=== PATIENT | male | born 1970 | race Caucasian/White ===

== ENCOUNTER 2016-09-13 17:22 | Emergency (ER) | payer MEDICAID, OTHER ==
[2016-09-13 17:48] VITALS: BP 114/79; PULSE 84; RESP 18; TEMP 98.2; O2SAT 95
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
--- NOTE | 2016-09-14 08:01 | RAD ---
Left shoulder three views History: Fall. Comparison: None available. Findings: No evidence for acute displaced fracture or dislocation. Mild narrowing of the glenohumeral joint space. Impression: Negative acute. If pain persists, consider MRI.
== END 2016-09-13 18:26 | disposition home or self-care (01) ==
LOC: C.ER 17:22
DX: S43.402A Unspecified sprain of left shoulder joint, initial encounter (principal); V18.4XXA Pedal cycle driver injured in noncollision transport accident in traffic accident, initial encounter; Y93.55 Activity, bike riding; Y92.410 Unspecified street and highway as the place of occurrence of the external cause

== ENCOUNTER 2017-09-18 20:15 | Emergency (ER) | payer SELFPAY ==
[2017-09-18 20:25] VITALS: BP 126/90; PULSE 79; RESP 20; TEMP 98; O2SAT 96
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
--- NOTE | 2017-09-19 07:29 | RAD ---
HISTORY: Cough COMPARISON: No prior. TECHNIQUE: Chest PA and lateral FINDINGS: LUNGS: No active pulmonary disease. PLEURA: No significant pleural effusion identified. No pneumothorax apparent. CARDIOVASCULAR: Normal. OSSEOUS STRUCTURES: No significant abnormalities. VISUALIZED UPPER ABDOMEN: Normal. OTHER FINDINGS: None. IMPRESSION: No acute cardiopulmonary disease appreciated.
--- NOTE | 2017-09-19 07:34 | RAD ---
PROCEDURE: Radiographs of the Left Shoulder HISTORY: injury COMPARISON: No prior. FINDINGS: BONES: No acute fracture or destructive bony lesion identified. JOINTS: Normal. Glenohumeral and acromioclavicular joints preserved. No osteoarthritis. SOFT TISSUES: Normal. OTHER FINDINGS: None. IMPRESSION: Unremarkable radiographs of the left shoulder.
--- NOTE | 2017-09-19 07:35 | RAD ---
PROCEDURE: Radiographs of the Right Shoulder HISTORY: injury COMPARISON: No prior. FINDINGS: BONES: No acute fracture or destructive bony lesion identified. JOINTS: Normal. Glenohumeral and acromioclavicular joints preserved. No osteoarthritis. SOFT TISSUES: Normal. OTHER FINDINGS: None. IMPRESSION: Unremarkable radiographs of the right shoulder.
== END 2017-09-18 21:11 | disposition home or self-care (01) ==
LOC: C.ER 20:15
DX: S16.1XXA Strain of muscle, fascia and tendon at neck level, initial encounter (principal); S43.409A Unspecified sprain of unspecified shoulder joint, initial encounter; V19.9XXA Pedal cyclist (driver) (passenger) injured in unspecified traffic accident, initial encounter; Y93.55 Activity, bike riding

== ENCOUNTER 2017-10-15 19:06 | Emergency (ER) | payer OTHER ==
[2017-10-15 19:22] VITALS: BP 120/74; PULSE 79; RESP 20; TEMP 99
--- NOTE | 2017-10-15 19:36 | C.PDOC ---
History Of Present Illness 46 year old male presents to ED with complaints of aching left shoulder pain for 2 days after lifting heavy boxes at work. He reports pain is worse with movement. He applied ice to area. Denies any radiating pain, chest pain, numbness, or weakness. Time Seen by Provider: 10/15/17 19:30 Chief Complaint (Nursing): Upper Extremity Problem/Injury History Per: Patient History/Exam Limitations: no limitations Onset/Duration Of Symptoms: Days Current Symptoms Are (Timing): Still Present Quality: Aching Exacerbating Factor(s): Movement Recent travel outside of the [place]: No Past Medical History Reviewed: Historical Data, Nursing Documentation, Vital Signs Vital Signs: Last Vital Signs Temp 99 F 10/15/17 19:20 Pulse 79 10/15/17 19:20 Resp 20 10/15/17 19:57 BP 120/74 10/15/17 19:20 Pulse Ox 99 10/15/17 19:57 Family History: States: Unknown Family Hx - Social History Hx Alcohol Use: No Hx Substance Use: No (former user) - Immunization History Hx Tetanus Toxoid Vaccination: Yes Hx Influenza Vaccination: Yes Hx Pneumococcal Vaccination: Yes Review Of Systems Cardiovascular: Negative for: Chest Pain Musculoskeletal: Positive for: Shoulder Pain Neurological: Negative for: Weakness, Numbness Physical Exam - Physical Exam Appears: Non-toxic Skin: Normal Color, Warm, Dry Head: Atraumatic, Normacephalic Eye(s): bilateral: Normal Inspection Extremity: Capillary Refill (<2 seconds), Other (Right shoulder mild tenderness lateral shoulder, pain with abduction over 90 degrees, no crepitus, no swelling , no deformity) Pulses: Left Radial: Normal, Right Radial: Normal Neurological/Psych: Oriented x3, Normal Speech, Normal Motor, Normal Sensation ED Course And Treatment O2 Sat by Pulse Oximetry: 9 (Room air) Pulse Ox Interpretation: Normal Medical Decision Making Medical Decision Making: Impression: Shoulder strain Based on history and exam, xray not clinically indicated Plan: * toradol IM * Arm sling Re-assess: Patient reported pain relief after injection of Toradol. Recommend rest, ice and NSAID for pain. Rx was given. Advise follow up with ortho if pain persists. Disposition Counseled Patient/Family Regarding: Diagnosis, Need For Followup, Rx Given - Disposition Referrals: Shey Ojeda MD [Staff Provider] - Disposition: HOME/ ROUTINE Disposition Time: 19:52 Condition: IMPROVED Additional Instructions: Please apply ice to area 15 minutes three times a day. Take Motrin as needed for pain every 6 hours, with food to not upset stomach. Follow up with orthopedic if pain persists over one week. 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 - Scribe Statement The provider has reviewed the documentation as recorded by the Scribe Spencer Ren All medical record entries made by the Scribe were at my direction and personally dictated by me. I have reviewed the chart and agree that the record accurately reflects my personal performance of the history, physical exam, medical decision making, and the department course for this patient. I have also personally directed, reviewed, and agree with the discharge instructions and disposition.
[2017-10-15 20:16] VITALS: O2SAT 9
== END 2017-10-15 19:57 | disposition home or self-care (01) ==
LOC: C.ER 19:06
DX: S43.402A Unspecified sprain of left shoulder joint, initial encounter (principal); X50.0XXA Overexertion from strenuous movement or load, initial encounter; Y92.89 Other specified places as the place of occurrence of the external cause; Y99.0 Civilian activity done for income or pay
CPT/HCPCS: 96372; 99284; J1885